=== PATIENT | male | born 1955 | race Caucasian/White ===

== ENCOUNTER 2017-06-03 16:58 | Emergency (ER) | payer MEDICAID ==
[~2017-06-03] VITALS: Ht 188 cm; Wt 130.6 kg
[~2017-06-03 16:58] MED LIST: ALBU8.5H4 IH; BISM262T13 PO; CODE-54 PO; CYCL10TA9 PO; FURO20TA4 PO; METR250T PO; NF-ROPIN4T PO; OMEP-10 PO; OXYC-471 PO; RASA1TAB PO; RIVA1TAB PO; TETR500C2 PO; TRIH2TAB2 PO; TRM50T PO
[2017-06-03] MEDS ORDERED: NS IV 500 ML 500 ML IV ONE (17:08)
[2017-06-03] MEDS ORDERED: SULF-222 (17:09)
--- NOTE | 2017-06-03 17:13 | ED Lower Extremity ---
General Chief Complaint: Lower Extremity Stated Complaint: KNEE SWOLLEN,POSS BLOOD CLOT Source: patient Exam Limitations: no limitations (MG AKBAR) History of Present Illness Date Seen by Provider: Jun 03, 2017 Time Seen by Provider: 17:02 Initial Comments Patient presents to ER by private conveyance with a chief complaint that for about a week now he's had some swelling around his left calf and knee and redness and tenderness. He went to see his primary care physician who thought he might have an infection and put him on an antibiotic. He's not had any injury to that leg does not have any drainage and he feels like despite being on the Bactrim his swelling has gotten worse. He is not having any fevers or chills, chest pain or shortness of breath. No nausea vomiting or diarrhea. He has had DVTs in the past and was on Xarelto probably over a year ago he said but is not on any blood thinners other than aspirin now. He still smokes one to one and a half packs per day. He denies any alcohol or drugs currently. He has not had any recent surgery, history of cancer or been laid up; he says is a very active gentleman. Patient does have a history of COPD and uses albuterol as needed but he has not use any recently. (MG AKBAR) Allergies and Home Medications Allergies Coded Allergies: Penicillins (Unverified Allergy, Unknown, 02/02/15) acetaminophen (Unverified Allergy, Unknown, 02/02/15) hydrocodone (Unverified Allergy, Unknown, 02/02/15) naproxen (Unverified Allergy, Unknown, 02/02/15) clarithromycin (Verified Adverse Reaction, Mild, NAUSEA, 02/07/15) doxycycline (Verified Adverse Reaction, Mild, NAUSEA, 02/07/15) Home Medications Cefdinir 300 Mg Capsule, 300 MG PO BID for 7 Days, #14 Ref 0 Prescribed by: MG AKBAR on 06/03/17 1825 Oxycodone HCl/Acetaminophen 1 Each Tablet, 1-2 EACH PO Q4H PRN for PAIN, #30 Prescribed by: CHARIS BALDWIN on 02/07/15 1053 Rasagiline Mesylate 1 Mg Tablet, 1 MG PO DAILY, (Reported) Sulfamethoxazole/Trimethoprim 1 Each Tablet, (Reported) Trihexyphenidyl HCl 2 Mg Tablet, 2 MG PO BID, (Reported) Constitutional: No chills, No diaphoresis, No fever Respiratory: No cough, No phlegm, No short of breath, wheezing Cardiovascular: No chest pain, No palpitations, No syncope Gastrointestinal: No abdominal pain, No constipation, No diarrhea, No nausea, No vomiting Genitourinary: No discharge, No dysuria (MG AKBAR) Past Crdmuqj-Lipaxp-Ajsywf Hx Patient Social History Recreational Drug Use: No Smoking Status: Current Everyday Smoker Type Used: Cigarettes (1 ppd) Recent Foreign Travel: No Contact w/Someone Who Travel: No Recent Hopitalizations: No (MG AKBAR) Immunizations Up To Date Date of Pneumonia Vaccine: Feb 07, 2011 (MG AKBAR) Seasonal Allergies Seasonal Allergies: No (MG AKBAR) Surgeries Surgeries: Eye Surgery, Orthopedic (MG AKBAR) Respiratory Respiratory Disorders: Asthma, Chronic Bronchitis, COPD (MG AKBAR) Neurological Neurological Disorders: Parkinson's Disease, Seizure Disorder (MG AKBAR) Genitourinary Genitourinary Disorders: Kidney Stones (MG AKBAR) Gastrointestinal Gastrointestinal Disorders: Gastroesophageal Reflux, Hiatal Hernia, Ulcer (MG AKBAR) Musculoskeletal Musculoskeletal Disorders: Arthritis, Chronic Back Pain (MG AKBAR) HEENT HEENT Disorders: Cataract (MG AKBAR) Psychosocial Behavioral Health Disorders: Anxiety (MG AKBAR) Blood Transfusions Adverse Reaction to a Blood Tr: No (MG AKBAR) Family Medical History Significant Family History: No Pertinent Family Hx (MG AKBAR) Physical Exam Vital Signs Vital Sign - Last 12Hours 06/03/17 17:02 Temp 98.2 Pulse 82 Resp 18 B/P (MAP) 155/93 (113) Pulse Ox 95 O2 Delivery Room Air (MARS ELIZONDO MD) Vital Signs Capillary Refill : (MG AKBAR) General Appearance: WD/WN, mild distress HEENT: PERRL/EOMI, pharynx normal Neck: non-tender, full range of motion, supple Cardiovascular: normal peripheral pulses, regular rate, rhythm, no edema Respiratory: chest non-tender, no respiratory distress, no accessory muscle use , wheezing, expiration Gastrointestinal: normal bowel sounds, non tender, soft Hips: bilateral hip non-tender, bilateral hip normal inspection, bilateral hip normal range of motion, bilateral hip no evidence of injury Legs: right leg non-tender, right leg normal inspection, bilateral leg normal range of motion, bilateral leg no evidence of injury, left leg pain, left leg soft tissue tenderness (Erythema), left leg swelling Neurologic/Tendon: normal sensation, normal motor functions, normal tendon functions, responds to pain, no evidence tendon injury Neurologic/Psychiatric: alert, normal mood/affect, oriented x 3 Skin: warm/dry, other (erythema) (MG AKBAR) Progress/Results/Core Measures Results/Orders Lab Results Laboratory Tests Test 06/03/17 17:32 06/03/17 18:25 Range/Units White Blood Count 9.3 4.3-11.0 10^3/uL Red Blood Count 4.07 L 4.35-5.85 10^6/uL Hemoglobin 12.6 L 13.3-17.7 G/DL Hematocrit 37 L 40-54 % Mean Corpuscular Volume 90 80-99 FL Mean Corpuscular Hemoglobin 31 25-34 PG Mean Corpuscular Hemoglobin Concent 34 32-36 G/DL Red Cell Distribution Width 15.3 H 10.0-14.5 % Platelet Count 283 130-400 10^3/uL Mean Platelet Volume 10.0 7.4-10.4 FL Neutrophils (%) (Auto) 52 42-75 % Lymphocytes (%) (Auto) 34 12-44 % Monocytes (%) (Auto) 8 0-12 % Eosinophils (%) (Auto) 5 0-10 % Basophils (%) (Auto) 1 0-10 % Neutrophils # (Auto) 4.9 1.8-7.8 X 10^3 Lymphocytes # (Auto) 3.2 1.0-4.0 X 10^3 Monocytes # (Auto) 0.8 0.0-1.0 X 10^3 Eosinophils # (Auto) 0.4 H 0.0-0.3 10^3/uL Basophils # (Auto) 0.1 0.0-0.1 10^3/uL Sodium Level 138 135-145 MMOL/L Potassium Level 3.7 3.6-5.0 MMOL/L Chloride Level 104 98-107 MMOL/L Carbon Dioxide Level 23 21-32 MMOL/L Anion Gap 11 5-14 MMOL/L Blood Urea Nitrogen 13 7-18 MG/DL Creatinine 1.11 0.60-1.30 MG/DL Estimat Glomerular Filtration Rate > 60 BUN/Creatinine Ratio 12 Glucose Level 98 70-105 MG/DL Calcium Level 9.4 8.5-10.1 MG/DL Total Bilirubin 0.4 0.1-1.0 MG/DL Aspartate Amino Transf (AST/SGOT) 16 5-34 U/L Alanine Aminotransferase (ALT/SGPT) 14 0-55 U/L Alkaline Phosphatase 114 40-136 U/L C-Reactive Protein High Sensitivity 0.54 H 0.00-0.50 MG/DL Total Protein 7.1 6.4-8.2 GM/DL Albumin 4.1 3.2-4.5 GM/DL D-Dimer 2.03 H 0.00-0.49 UG/ML (MARS ELIZONDO MD) Medications Given in ED Current Medications Medications Dose Ordered Sig/Nicolle Route Start Time Stop Time Status Last Admin Dose Admin Albuterol/ Ipratropium 3 ml ONCE ONCE INH 06/03/17 17:30 06/03/17 17:31 DC 06/03/17 17:58 3 ML Ceftriaxone Sodium 1000 mg/ Dextrose/Water 50 ml @ 100 mls/hr ONCE ONCE IV 06/03/17 18:30 06/03/17 18:59 DC 06/03/17 18:33 100 MLS/HR Sodium Chloride 500 ml @ 0 mls/hr Q0M ONCE IV 06/03/17 17:08 06/03/17 17:10 DC 06/03/17 17:41 500 MLS/HR (MARS ELIZONDO MD) Vital Signs/I&O Vital Sign - Last 12Hours 06/03/17 06/03/17 17:02 17:45 Temp 98.2 Pulse 82 Resp 18 B/P (MAP) 155/93 (113) Pulse Ox 95 99 O2 Delivery Room Air Room Air (MARS ELIZONDO MD) Progress Note #1: Time: 17:17 Progress Note DVT versus cellulitis. We have counseled him on his smoking and other risk factors. We'll get an ultrasound as well as some basic lab work. Progress Note #2: Time: 18:21 Progress Note Review the ultrasound and labs and infections like it under control however there redness spread the last 3 days since he was diagnosed and started on antibiotics so we'll go ahead and give him a gram of Rocephin IV while we repeat some labs that got hemolyzed and plan to increase his coverage in addition to the Bactrim with Omnicef. Discussed the case with Dr. Elizondo and while the patient will probably go home on increased antibiotics were going to repeat those labs and an Dr. Elizondo sees them and there is nothing further to act upon he will discharge the patient. (MG AKBAR) Progress Note : Progress Note 1904: I did see the patient with Dr. Akbar at checkout. Pending labs. Ultrasound negative. Labs reviewed. No significant concerns. D-dimer is elevated but I believe this is related to the cellulitis as ultrasound is negative of the leg at this point. We did discuss that this could change in the future especially given his history of previous DVT. He will follow-up with his doctor later this week or early next week for recheck. Discharged home with return precautions. Patient verbalize understanding instructions and agreement with plan. (MARS ELIZONDO MD) Diagnostic Imaging Diagonstic Imaging: Ultrasound Plain Films/CT/US/NM/MRI: leg Comments no overt DVT Reviewed: Reviewed by Me (MG AKBAR) Comments VIA [facility]. [place], [place] NAME: RYAN AUSTIN [facility] REC#: [id number] PT STATUS: REG ER : 1955 PHYSICIAN: MG AKBAR MD ADMIT DATE: 06/03/17/ER Draft Date of Exam:06/03/17 US VENOUS LOWER EXT LT PROCEDURE: US left lower extremity venous. TECHNIQUE: Multiple real-time grayscale images were obtained over the left lower extremity in various projections. Additional duplex Doppler and color Doppler images were also obtained. INDICATION: Left leg redness and swelling. COMPARISON: 05/19/2015. FINDINGS: No sonographic evidence of deep venous thrombosis is seen in the common femoral vein, superficial femoral vein and popliteal vein. These vessels demonstrate compressibility, augmentation and color flow. The calf vessels are difficult to evaluate due to edema and not well seen. IMPRESSION: No sonographic evidence of deep venous thrombosis in the left lower extremity. The calf vessels are not well seen. Dictated on workstation # [id number] Dict: 06/03/17 1817 Trans: 06/03/17 1821 [facility] [id number] Interpreted by: DAVID MCINTYRE MD Electronically signed by: (MARS ELIZONDO MD) Transfer of Care Transfer of Care Time: 18:20 Care transferred to: Lnida (MG AKBAR) Departure Impression Impression: Primary Impression: Cellulitis Qualified Codes: L03.116 - Cellulitis of left lower limb Disposition: HOME, SELF-CARE Condition: Stable Departure-Patient Inst. Decision time for Depature: 19:06 (MARS ELIZONDO MD) Referrals: RACHEAL IGLESIAS MD (PCP/Family) Primary Care Physician Patient Instructions: Cellulitis and Erysipelas (Skin Infections) Add. Discharge Instructions: Drink plenty of fluids use Tylenol or Motrin as necessary for the pain. Keep the extremity elevated when not in use. Stay mobile. If you begin to have chest pain or shortness of breath return to the ER immediately. Continue taking the Bactrim and add to that the Omnicef one capsule twice a day for the next week. While you're on these antibiotics would also be canales to take probiotics twice a day or if you are already on probiotics then double your amount until you're done with the antibiotics to try and prevent antibiotic related diarrhea. Plan to follow up with your primary care physician in the next week for reevaluation of your leg. All discharge instructions reviewed with patient and/or family. Voiced understanding. Scripts Cefdinir (Cefdinir) 300 Mg Capsule 300 MG PO BID for 7 Days, #14 CAP 0 Refills Prov: MG AKBAR 06/03/17 Copy Copies To 1: RACHEAL IGLESIAS MD, TITUS J Jun 03, 2017 17:13 MARS ELIZONDO MD Jun 03, 2017 19:06
[2017-06-03] MEDS ORDERED: RT-ALBUTEROL/IPRATROPIUM 3 ML (DUONEB) VIAL INH ONE (17:30)
[2017-06-03 17:42] LABS: BASOPHILS # (AUTO) 0.1 10^3/uL (0.0-0.1); BASOPHILS % (AUTO) 1 % (0-10); EOSINOPHILS # (AUTO) 0.4 10^3/uL (0.0-0.3); EOSINOPHILS % (AUTO) 5 % (0-10); HEMATOCRIT 37 % (40-54); HEMOGLOBIN 12.6 G/DL (13.3-17.7); LYMPHOCYTES # (AUTO) 3.2 X 10^3 (1.0-4.0); LYMPHOCYTES % (AUTO) 34 % (12-44); MEAN CORPUSCULAR HEMOGLOBIN 31 PG (25-34); MEAN CORPUSCULAR HGB CONC 34 G/DL (32-36); MEAN CORPUSCULAR VOLUME 90 FL (80-99); MONOCYTES # (AUTO) 0.8 X 10^3 (0.0-1.0); MONOCYTES % (AUTO) 8 % (0-12); NEUTROPHILS # (AUTO) 4.9 X 10^3 (1.8-7.8); NEUTROPHILS % (AUTO) 52 % (42-75); PLATELET COUNT 283 10^3/uL (130-400); RED BLOOD COUNT 4.07 10^6/uL (4.35-5.85); RED CELL DISTRIBUTION WIDTH 15.3 % (10.0-14.5); WHITE BLOOD COUNT 9.3 10^3/uL (4.3-11.0)
[2017-06-03 17:59] LABS: CALCIUM 9.4 MG/DL (8.5-10.1)
--- NOTE | 2017-06-03 18:22 | Diagnostic Imaging Report ---
PROCEDURE: US left lower extremity venous. TECHNIQUE: Multiple real-time grayscale images were obtained over the left lower extremity in various projections. Additional duplex Doppler and color Doppler images were also obtained. INDICATION: Left leg redness and swelling. COMPARISON: 05/19/2015. FINDINGS: No sonographic evidence of deep venous thrombosis is seen in the common femoral vein, superficial femoral vein and popliteal vein. These vessels demonstrate compressibility, augmentation and color flow. The calf vessels are difficult to evaluate due to edema and not well seen. IMPRESSION: No sonographic evidence of deep venous thrombosis in the left lower extremity. The calf vessels are not well seen. Dictated by: Dictated on workstation # [id number]
[2017-06-03] MEDS ORDERED: CEFD300C3 PO (18:25)
[2017-06-03] MEDS ORDERED: cefTRIAXone INJECTION 1,000 MG in D5W 50 ML IVPB SOLUTION 50 ML IV ONE (18:30)
[2017-06-03 18:54] LABS: ALANINE AMINOTRANSFERASE 14 U/L (0-55); ALBUMIN 4.1 GM/DL (3.2-4.5); ALKALINE PHOSPHATASE 114 U/L (40-136); BILIRUBIN,TOTAL 0.4 MG/DL (0.1-1.0); BUN/CREATININE RATIO 12; CARBON DIOXIDE 23 MMOL/L (21-32); CHLORIDE 104 MMOL/L (98-107); CREATININE SERUM 1.11 MG/DL (0.60-1.30); GFR ESTIMATED > 60; GLUCOSE 98 MG/DL (70-105); POTASSIUM 3.7 MMOL/L (3.6-5.0); SODIUM 138 MMOL/L (135-145); TOTAL PROTEIN 7.1 GM/DL (6.4-8.2)
[2017-06-03 19:22] VITALS: BP 149/93
--- OUTSIDE RECORDS SUMMARY | 2017-06-07 05:11 | XMS REPORT | Clinical Summary ---
Author Author [facility] Organization [facility] Address Unknown Phone Unavailable Care Team Providers Care Drill Press Operator Name Role Phone Dayne Parks MD PCP Source Comments Some departments are not documenting in the electronic medical record. If you do not see the information that you expected, contact Release of Information in the Health Information Management department at [phone] for further assistance in locating additional records.[facility] Allergies Not on File Current Medications Not on file Active Problems Not on file Social History Tobacco Use Types Packs/Day Years Used Date Never Assessed Sex Assigned at Date Recorded Not on file Last Filed Vital Signs Not on file Plan of Treatment Health Maintenance Due Date Last Done Comments HEPATITIS C SCREENING 1955 PHYSICAL (COMPREHENSIVE) 1964 EXAM PERTUSSIS VACCINE 1968 TETANUS VACCINE 1974 COLORECTAL CANCER 2007 SCREENING INFLUENZA VACCINE 12/09/2016 Results Not on filefrom Last 3 Months
--- OUTSIDE RECORDS SUMMARY | 2017-06-07 05:11 | XMS REPORT ---
Author Author ANASTASIA TORIBIO Organization [facility] Address [address] [place] [address] Care Team Providers Care Data Warehouse Manager Name Role Phone ANASTASIA TORIBIO Unavailable PROBLEMS Type Condition ICD9-CM Code [id number] Code Onset Dates Condition Status SNOMED Code Problem Low hemoglobin and low hematocrit D64.9 Active 422936116 Problem Arthritis of right elbow M19.021 Active 471533802 Problem General medical examination Z00.00 Active 176607820 Problem Pain in thoracic spine M54.6 Active 726213895177025 Problem Tremor R25.1 Active 95148003 Problem Other chronic pain G89.29 Active 78504851 Problem Low back pain M54.5 Active 142500501 ALLERGIES No Information SOCIAL HISTORY Never Assessed PLAN OF CARE VITAL SIGNS MEDICATIONS No Known Medications RESULTS No Results PROCEDURES No Known procedures IMMUNIZATIONS No Known Immunizations MEDICAL (GENERAL) HISTORY Type Description Date Medical History parkinsons disease-But states has tremor never dx officially Medical History back pain- no abnormality on radiology Medical History seizures-hasn't had seizures in years Medical History 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
--- OUTSIDE RECORDS SUMMARY | 2017-06-07 05:11 | XMS REPORT ---
Author BRYON Mccauley Organization [facility] Address [address] [place] [address] Care Team Providers Care Slab Grinder Name Role Phone NORRIS BARKLEYICE Unavailable PROBLEMS Type Condition ICD9-CM Code ASR70-QV Code Onset Dates Condition Status SNOMED Code Problem Low hemoglobin and low hematocrit D64.9 Active 972651223 Problem Arthritis of right elbow M19.021 Active 408398026 Problem General medical examination Z00.00 Active 936496991 Problem Pain in thoracic spine M54.6 Active 785815882867868 Problem Tremor R25.1 Active 10381264 Problem Other chronic pain G89.29 Active 62266702 Problem Low back pain M54.5 Active 498963408 ALLERGIES Substance Reaction Event Type Date Status Tylenol nausea Drug Allergy Jun, Active Tramadol HCl hives Drug Allergy Jun, Active Penicillin G Potassium anaphylaxis Drug Allergy Jun, Active Naproxen itching Drug Allergy Jun, Active Iodine rash Drug Allergy Jun, Active Hydrocodone-Ibuprofen hives Drug Allergy Jun, Active Aleve hives Drug Allergy Jun, Active SOCIAL HISTORY Never Assessed PLAN OF CARE Activity Details Follow Up prn Reason: VITAL SIGNS Height 74 in 2016-06-19 Weight 296.4 lbs 2016-06-19 Temperature 98.7 degrees Fahrenheit 2016-06-19 Heart Rate 88 bpm 2016-06-19 Respiratory Rate 20 2016-06-19 BMI 38.05 kg/m2 2016-06-19 Blood pressure systolic 136 mmHg 2016-06-19 Blood pressure diastolic 80 mmHg 2016-06-19 MEDICATIONS Medication Instructions Dosage Frequency Start Date End Date Duration Status Cephalexin 500 MG Orally every 12 hrs 1 capsule 12h Jun, Jun, 10 day(s) Active Percocet 10-325 MG Orally every 6 hrs 1 tablet as needed 6h Active Gabapentin 400 MG Orally Daily 1 capsule 24h Active Lasix 20 MG Orally Once a day 1 tablet 24h Active Oxygen 1 liter at night Active Morphine Sulfate ER 15 MG Orally 3 daily 1 tablet Active RESULTS No Results PROCEDURES No Known procedures [...]
--- OUTSIDE RECORDS SUMMARY | 2017-06-07 05:12 | XMS REPORT ---
Author Author ANASTASIA TORIBIO Organization [facility] Address [address] [place] [address] Care Team Providers Care Insurance Healthcare Representative Name Role Phone ANASTASIA TORIBIO Unavailable PROBLEMS Type Condition ICD9-CM Code IPB18-JQ Code Onset Dates Condition Status SNOMED Code Problem Low hemoglobin and low hematocrit D64.9 Active 649124696 Problem Arthritis of right elbow M19.021 Active 553204335 Problem General medical examination Z00.00 Active 518736300 Problem Pain in thoracic spine M54.6 Active 706273537189295 Problem Tremor R25.1 Active 89855066 Problem Other chronic pain G89.29 Active 47229186 Problem Low back pain M54.5 Active 874338060 ALLERGIES Substance Reaction Event Type Date Status Tylenol nausea Drug Allergy May, Active Tramadol HCl hives Drug Allergy May, Active Penicillin G Potassium anaphylaxis Drug Allergy May, Active Naproxen itching Drug Allergy May, Active Iodine rash Drug Allergy May, Active Hydrocodone-Ibuprofen hives Drug Allergy May, Active Aleve hives Drug Allergy May, Active SOCIAL HISTORY No smoking Hx information available PLAN OF CARE Activity Details Follow Up 2-3 weeks Reason:ameritox/pain VITAL SIGNS Height 74 in 2016-05-15 Weight 294.2 lbs 2016-05-15 Temperature 98.0 degrees Fahrenheit 2016-05-15 Heart Rate 72 bpm 2016-05-15 Respiratory Rate 20 2016-05-15 BMI 37.77 kg/m2 2016-05-15 Blood pressure systolic 132 mmHg 2016-05-15 Blood pressure diastolic 86 mmHg 2016-05-15 MEDICATIONS Medication Instructions Dosage Frequency Start Date End Date Duration Status Lasix 20 MG Orally Once a day 1 tablet 24h Active Oxygen 1 liter at night Active Morphine Sulfate ER 15 MG Orally 3 daily 1 tablet Active Percocet 10-325 MG Orally every 6 hrs 1 tablet as needed 6h Active Gabapentin 400 MG Orally Daily 1 capsule 24h Active RESULTS Name Result Date Reference Range TSH 2016-05-15 TSH 2.020 0.450-4.500 CBC 2016-05-15 WBC 9.0 3.4-10.8 RBC 3.99 4.14-5.80 Hemoglobin 12.1 12.6-17.7 Hematocrit 36.8 37.5-51.0 MCV 92 79-97 MCH 30.3 26.6-33.0 MCHC 32.9 31.5-35.7 RDW 14.2 12.3-15.4 Platelets 296 150-379 Neutrophils 44 Lymphs 44 Monocytes 8 Eos 3 Basos 1 Immature Cells Neutrophils (Absolute) 3.9 1.4-7.0 Lymphs (Absolute) 4.0 0.7-3.1 Monocytes(Absolute) 0.7 0.1-0.9 Eos (Absolute) 0.3 0.0-0.4 Baso (Absolute) 0.1 0.0-0.2 Immature Granulocytes 0 Immature Grans (Abs) 0.0 0.0-0.1 NRBC Hematology Comments: CMP 2016-05-15 Glucose, Serum 92 65-99 BUN 14 6-24 Creatinine, Serum 0.76 0.76-1.27 eGFR If NonAfricn Am 101 >59 eGFR If Africn Am 116 >59 BUN/Creatinine Ratio 18 9-20 Sodium, Serum 142 134-144 Potassium, Serum 4.1 3.5-5.2 Chloride, Serum 104 96-106 Carbon Dioxide, Total 23 18-29 Calcium, Serum 8.9 8.7-10.2 Protein, Total, Serum 6.2 6.0-8.5 Albumin, Serum 4.0 3.5-5.5 Globulin, Total 2.2 1.5-4.5 A/G Ratio 1.8 1.1-2.5 Bilirubin, Total 0.2 0.0-1.2 Alkaline Phosphatase, S 103 39-117 AST (SGOT) 19 0-40 ALT (SGPT) 22 0-44 AMERITOX 2016-05-15 PROCEDURES Procedure Date Ordered Related Diagnosis Body Site LAB NOT BILLED BY [employer] May 15, 2016 No Charge May 15, 2016 Office Visit, Est Pt., Level 5 May 15, 2016 IMMUNIZATIONS No Known Immunizations
--- OUTSIDE RECORDS SUMMARY | 2017-06-07 05:12 | XMS REPORT ---
Author Author ADELITA SHAIKH [facility] Address [address] [place] [address] Care Team Providers Care Regulatory Compliance Manager Name Role Phone ADELITA SHAIKH Unavailable PROBLEMS Type Condition ICD9-CM Code ZEA51-CS Code Onset Dates Condition Status SNOMED Code Problem Low hemoglobin and low hematocrit D64.9 Active 334952956 Problem Arthritis of right elbow M19.021 Active 528544116 Problem General medical examination Z00.00 Active 569571684 Problem Pain in thoracic spine M54.6 Active 520121605251667 Problem Tremor R25.1 Active 08862347 Problem Other chronic pain G89.29 Active 74607735 Problem Low back pain M54.5 Active 972459489 ALLERGIES No Information SOCIAL HISTORY Never Assessed [...]
--- OUTSIDE RECORDS SUMMARY | 2017-06-07 05:12 | XMS REPORT ---
Author Author RISA REID [facility] Address [address] [place] [address] Care Team Providers Care Shaker Tender Name Role Phone RISA REID Unavailable PROBLEMS Type Condition ICD9-CM Code [id number] Code Onset Dates Condition Status SNOMED Code Problem Low hemoglobin and low hematocrit D64.9 Active 513705024 Problem Arthritis of right elbow M19.021 Active 933315045 Problem General medical examination Z00.00 Active 527087098 Problem Pain in thoracic spine M54.6 Active 451142547710028 Problem Tremor R25.1 Active 41523810 Problem Other chronic pain G89.29 Active 54368744 Problem Low back pain M54.5 Active 192313496 ALLERGIES Substance Reaction Event Type Date Status [...] prn Reason: VITAL SIGNS Height 74 in 2016-07-04 Weight 297.0 lbs 2016-07-04 Temperature 98.1 degrees Fahrenheit 2016-07-04 Heart Rate 80 bpm 2016-07-04 Respiratory Rate 22 2016-07-04 BMI 38.13 kg/m2 2016-07-04 Blood pressure systolic 123 mmHg 2016-07-04 Blood pressure diastolic 81 mmHg 2016-07-04 MEDICATIONS Medication Instructions Dosage Frequency Start Date End Date Duration Status Lasix 20 MG Orally Once a day 1 tablet 24h Active Oxygen 1 liter at night Active Gabapentin 400 MG Orally Daily 1 capsule 24h Active Morphine Sulfate ER 15 MG Orally 3 daily 1 tablet Active Tennis Elbow Strap - as directed Apr, 10 days Active Percocet 10-325 MG Orally every 6 hrs 1 tablet as needed 6h Active RESULTS No Results PROCEDURES No Known [...]
--- OUTSIDE RECORDS SUMMARY | 2017-06-07 05:12 | XMS REPORT ---
Author Author CLARISSE PICHARDO Organization [facility] Address [address] [place] [address] Care Team Providers Care Director Facilities Maintenance Name Role Phone CLARISSE PICHARDO Unavailable PROBLEMS Type Condition ICD9-CM Code [id number] Code Onset Dates Condition Status SNOMED Code Problem Low hemoglobin and low hematocrit D64.9 Active 829062559 Problem Arthritis of right elbow M19.021 Active 301123022 Problem Other chronic pain G89.29 Active 51428278 Problem Low back pain M54.5 Active 537752514 Problem General medical examination Z00.00 Active 063414538 Problem Tremor R25.1 Active 66383282 Problem Pain in thoracic spine M54.6 Active [id number] ALLERGIES Substance Reaction Event Type Date Status Tylenol nausea Drug Allergy Apr, Active Tramadol HCl hives Drug Allergy Apr, Active Penicillin G Potassium anaphylaxis Drug Allergy Apr, Active Naproxen itching Drug Allergy Apr, Active Iodine rash Drug Allergy Apr, Active Hydrocodone-Ibuprofen hives Drug Allergy Apr, Active Aleve hives Drug Allergy Apr, Active SOCIAL HISTORY No smoking Hx information available PLAN OF CARE Activity Details Follow Up prn Reason: VITAL SIGNS Height 74 in 2016-04-24 Weight 278 lbs 2016-04-24 Temperature 98.1 degrees Fahrenheit 2016-04-24 Heart Rate 96 bpm 2016-04-24 Respiratory Rate 20 2016-04-24 BMI 35.69 kg/m2 2016-04-24 Blood pressure systolic 110 mmHg 2016-04-24 Blood pressure diastolic 80 mmHg 2016-04-24 MEDICATIONS Medication Instructions Dosage Frequency Start Date End Date Duration Status Gabapentin 400 MG Orally Daily 1 capsule 24h Active Lasix 20 MG Orally Once a day 1 tablet 24h Active PredniSONE 20 mg Orally Once a day 1 tablet 24h Apr, Apr, 05 days Active Tennis Elbow Strap - as directed Apr, 10 days Active Percocet 10-325 MG Orally every 6 hrs 1 tablet as needed 6h Active Morphine Sulfate ER 15 MG Orally 3 daily 1 tablet Active Oxygen Active RESULTS Name Result Date Reference Range Xray : Elbow, Right 3 views (IN HOUSE) 2016-04-24 PROCEDURES Procedure Date Ordered Related Diagnosis Body Site X-RAY EXAM OF ELBOW Apr 24, 2016 Office Visit, New Pt., Level 2 Apr 24, 2016 IMMUNIZATIONS No Known Immunizations
--- OUTSIDE RECORDS SUMMARY | 2017-06-07 05:12 | XMS REPORT | Continuity of Care Document ---
Author Author [facility] Organization [facility] Address Unknown Phone Unavailable Allergies Active Description Code Type Severity Reaction Onset Reported/Identified Relationship to Patient Clinical Status Yes acetaminophen [id number] Drug Allergy Unknown N/A 02/02/2015 Yes clarithromycin [id number] Drug Allergy Unknown NAUSEA 02/02/2015 Yes doxycycline [id number] Drug Allergy Unknown NAUSEA 02/02/2015 Yes hydrocodone [id number] Drug Allergy Unknown N/A 02/02/2015 Yes naproxen [id number] Drug Allergy Unknown N/A 02/02/2015 Yes Penicillins [id number] Drug Allergy Unknown N/A 02/02/2015 Yes clarithromycin [id number] Drug Allergy Mild NAUSEA 02/07/2015 Yes doxycycline [id number] Drug Allergy Mild NAUSEA 02/07/2015 Medications There is no data. Problems Date Dx Coded Attending Type Code Diagnosis Diagnosed By 07/16/2010 Ot 729.5 11/19/2010 Ot 491.21 11/19/2010 Ot 786.05 01/14/2015 MIKHAIL ARIAS, MARS Garcia Ot 593.9 RENAL URETERAL DIS NOS 01/14/2015 MARS ELIZONDO MD Ot 719.46 JOINT PAIN-L/LEG 02/07/2015 SABINA ARIAS, ROB Haider Ot 332.0 PARALYSIS AGITANS 02/07/2015 SABINA ARIAS, ROB Haider Ot 496 CHR AIRWAY OBSTRUCT NEC 02/07/2015 SABINA ARIAS, ROB Haider Ot 717.7 CHONDROMALACIA PATELLAE 02/07/2015 SABINA ARIAS, ROB Haider Ot 733.92 CHONDROMALACIA 02/07/2015 SABINA ARIAS, ROB Haider Ot V57.1 PHYSICAL THERAPY NEC 05/19/2015 SABINA ARIAS, ROB Haider Ot 717.3 05/19/2015 SABINA ARIAS, ROB Haider Ot V72.83 05/19/2015 SABINA ARIAS, ROB Haider Ot V74.8 05/20/2015 MARICEL LOCKWOOD DO Ot F17.210 NICOTINE DEPENDENCE, CIGARETTES, UNCOMPL 05/20/2015 MARICEL LOCKWOOD DO Ot I82.4Z2 AC EMBLSM AND THOMBOS UNSP DEEP VEINS OF 02/17/2016 MERCY BUSHP Ot F17.210 NICOTINE DEPENDENCE, CIGARETTES, UNCOMPL 02/17/2016 RACHELLE, [facility] MANAGER MEDICAL DEVICE Ot G89.29 OTHER CHRONIC PAIN 02/17/2016 RACHELLE, [facility] MANAGER [employer]ICAL DEVICE Ot J44.9 CHRONIC OBSTRUCTIVE PULMONARY DISEASE, U 02/17/2016 RACHELLE, [facility] MANAGER MEDICAL DEVICE Ot M54.2 CERVICALGIA 02/17/2016 RACHELLE, [facility] MANAGER MEDICAL DEVICE Ot R51 HEADACHE 02/17/2016 RACHELLE, [facility] MANAGER MEDICAL DEVICE Ot Z79.899 OTHER STUDENT OUTREACH COORDINATOR (CURRENT) DRUG THERAPY 02/23/2016 RACHELLE, [facility] MANAGER MEDICAL DEVICE Ot F17.210 NICOTINE DEPENDENCE, CIGARETTES, UNCOMPL 02/23/2016 RACHELLE, [facility] MANAGER MEDICAL DEVICE Ot G89.29 OTHER CHRONIC PAIN 02/23/2016 RACHELLE, [facility] MANAGER MEDICAL DEVICE Ot J44.9 CHRONIC OBSTRUCTIVE PULMONARY DISEASE, U 02/23/2016 RACHELLE, [employer] MANAGER MEDICAL DEVICE Ot M54.2 CERVICALGIA 02/23/2016 RACHELLE, [facility] MANAGER MEDICAL DEVICE Ot R51 HEADACHE 02/23/2016 RACHELLE, [facility] MANAGER MEDICAL DEVICE Ot Z79.899 OTHER STUDENT OUTREACH COORDINATOR (CURRENT) DRUG THERAPY 06/03/2017 SABINA ARIAS, ROB Haider Ot 717.3 DERANG MED MENISCUS NEC 06/03/2017 ROB MUHAMMAD MD Ot V72.83 EXAM PRE-OPERATIVE NEC 06/03/2017 ROB MUHAMMAD MD, Ot V74.8 SCREEN-BACTERIAL DIS NEC Procedures There is no data. Results Test Result Range Complete urinalysis with reflex to culture - 02/17/16 21:30 Urine color determination YELLOW NRG Urine clarity determination CLEAR NRG Urine pH measurement by test strip 7 5-9 Specific gravity of urine by test strip 1.010 1.016- 1.022 Urine protein assay by test strip, semi-quantitative NEGATIVE NEGATIVE Urine glucose detection by automated test strip NEGATIVE NEGATIVE Erythrocytes detection in urine sediment by light microscopy NEGATIVE NEGATIVE Urine ketones detection by automated test strip NEGATIVE NEGATIVE Urine nitrite detection by test strip NEGATIVE NEGATIVE Urine total bilirubin detection by test strip NEGATIVE NEGATIVE Urine urobilinogen measurement by automated test strip (mass/volume) NORMAL NORMAL Urine leukocyte esterase detection by dipstick NEGATIVE NEGATIVE Automated urine sediment erythrocyte count by microscopy (number/high power field) NONE NRG Automated urine sediment leukocyte count by microscopy (number/high power field ) RARE NRG Bacteria detection in urine sediment by light microscopy NEGATIVE NRG Squamous epithelial cells detection in urine sediment by light microscopy 2-5 NRG Crystals detection in urine sediment by light microscopy NONE NRG Casts detection in urine sediment by light microscopy NONE NRG Mucus detection in urine sediment by light microscopy NEGATIVE NRG Complete urinalysis with reflex to culture NO NRG Renal epithelial cells detection in urine sediment by light microscopy NONE NRG Complete blood count (CBC) with automated white blood cell (WBC) differential - 02/17/16 21:40 Blood leukocytes automated count (number/volume) 9.7 10*3/uL 4.3-11.0 Blood erythrocytes automated count (number/volume) 4.31 10*6/uL 4.35-5.85 Venous blood hemoglobin measurement (mass/volume) 13.6 g/dL 13.3-17.7 Blood hematocrit (volume fraction) 41 % 40-54 Automated erythrocyte mean corpuscular volume 96 [foz_us] 80-99 Automated erythrocyte mean corpuscular hemoglobin (mass per erythrocyte) 32 pg 25-34 Automated erythrocyte mean corpuscular hemoglobin concentration measurement ( mass/volume) 33 g/dL 32-36 Automated erythrocyte distribution width ratio 15.8 % 10.0-14.5 Automated blood platelet count (count/volume) 278 10*3/uL 130-400 Automated blood platelet mean volume measurement 9.4 [foz_us] 7.4-10.4 Automated blood neutrophils/100 leukocytes 44 % 42-75 Automated blood lymphocytes/100 leukocytes 41 % 12-44 Blood monocytes/100 leukocytes 10 % 0-12 Automated blood eosinophils/100 leukocytes 3 % 0-10 Automated blood basophils/100 leukocytes 1 % 0-10 Blood neutrophils automated count (number/volume) 4.3 10*3 1.8-7.8 Blood lymphocytes automated count (number/volume) 4.0 10*3 1.0-4.0 Blood monocytes automated count (number/volume) 1.0 10*3 0.0-1.0 Automated eosinophil count 0.3 10*3/uL 0.0-0.3 Automated blood basophil count (count/volume) 0.1 10*3/uL 0.0-0.1 Comprehensive metabolic panel - 02/17/16 21:40 Serum or plasma sodium measurement (moles/volume) 142 mmol/L 135-145 Serum or plasma potassium measurement (moles/volume) 4.0 mmol/L 3.6-5.0 Serum or plasma chloride measurement (moles/volume) 106 mmol/L 98-107 Carbon dioxide 21 mmol/L 21-32 Serum or plasma anion gap determination (moles/volume) 15 mmol/L 5-14 Serum or plasma urea nitrogen measurement (mass/volume) 11 mg/dL 7-18 Serum or plasma creatinine measurement (mass/volume) 0.89 mg/dL 0.60-1.30 Serum or plasma urea nitrogen/creatinine mass ratio 12 NRG Serum or plasma creatinine measurement with calculation of estimated glomerular filtration rate > NRG Serum or plasma glucose measurement (mass/volume) 102 mg/dL 70-105 Serum or plasma calcium measurement (mass/volume) 9.9 mg/dL 8.5-10.1 Serum or plasma total bilirubin measurement (mass/volume) 0.2 mg/dL 0.1-1.0 Serum or plasma alkaline phosphatase measurement (enzymatic activity/volume) 109 U/L 40-136 Serum or plasma aspartate aminotransferase measurement (enzymatic activity/ volume) 16 U/L 5-34 Serum or plasma alanine aminotransferase measurement (enzymatic activity/volume ) 16 U/L 0-55 Serum or plasma protein measurement (mass/volume) 7.0 g/dL 6.4-8.2 Serum or plasma albumin measurement (mass/volume) 4.3 g/dL 3.2-4.5 Complete blood count (CBC) with automated white blood cell (WBC) differential - 06/03/17 17:32 Blood leukocytes automated count (number/volume) 9.3 10*3/uL 4.3-11.0 Blood erythrocytes automated count (number/volume) 4.07 10*6/uL 4.35-5.85 Venous blood hemoglobin measurement (mass/volume) 12.6 g/dL 13.3-17.7 Blood hematocrit (volume fraction) 37 % 40-54 Automated erythrocyte mean corpuscular volume 90 [foz_us] 80-99 Automated erythrocyte mean corpuscular hemoglobin (mass per erythrocyte) 31 pg 25-34 Automated erythrocyte mean corpuscular hemoglobin concentration measurement ( mass/volume) 34 g/dL 32-36 Automated erythrocyte distribution width ratio 15.3 % 10.0-14.5 Automated blood platelet count (count/volume) 283 10*3/uL 130-400 Automated blood platelet mean volume measurement 10.0 [foz_us] 7.4-10.4 Automated blood neutrophils/100 leukocytes 52 % 42-75 Automated blood lymphocytes/100 leukocytes 34 % 12-44 Blood monocytes/100 leukocytes 8 % 0-12 Automated blood eosinophils/100 leukocytes 5 % 0-10 Automated blood basophils/100 leukocytes 1 % 0-10 Blood neutrophils automated count (number/volume) 4.9 10*3 1.8-7.8 Blood lymphocytes automated count (number/volume) 3.2 10*3 1.0-4.0 Blood monocytes automated count (number/volume) 0.8 10*3 0.0-1.0 Automated eosinophil count 0.4 10*3/uL 0.0-0.3 Automated blood basophil count (count/volume) 0.1 10*3/uL 0.0-0.1 Comprehensive metabolic panel - 06/03/17 17:32 Serum or plasma sodium measurement (moles/volume) 138 mmol/L 135-145 Serum or plasma potassium measurement (moles/volume) 3.7 mmol/L 3.6-5.0 Serum or plasma chloride measurement (moles/volume) 104 mmol/L 98-107 Carbon dioxide 23 mmol/L 21-32 Serum or plasma anion gap determination (moles/volume) 11 mmol/L 5-14 Serum or plasma urea nitrogen measurement (mass/volume) 13 mg/dL 7-18 Serum or plasma creatinine measurement (mass/volume) 1.11 mg/dL 0.60-1.30 Serum or plasma urea nitrogen/creatinine mass ratio 12 NRG Serum or plasma creatinine measurement with calculation of estimated glomerular filtration rate > NRG Serum or plasma glucose measurement (mass/volume) 98 mg/dL 70-105 Serum or plasma calcium measurement (mass/volume) 9.4 mg/dL 8.5-10.1 Serum or plasma total bilirubin measurement (mass/volume) 0.4 mg/dL 0.1-1.0 Serum or plasma alkaline phosphatase measurement (enzymatic activity/volume) 114 U/L 40-136 Serum or plasma aspartate aminotransferase measurement (enzymatic activity/ volume) 16 U/L 5-34 Serum or plasma alanine aminotransferase measurement (enzymatic activity/volume ) 14 U/L 0-55 Serum or plasma protein measurement (mass/volume) 7.1 g/dL 6.4-8.2 Serum or plasma albumin measurement (mass/volume) 4.1 g/dL 3.2-4.5 Serum or plasma C reactive protein measurement (mass/volume) - 06/03/17 17:32 Serum or plasma C reactive protein measurement (mass/volume) 0.54 mg /dL 0.00-0.50 Fibrin D-dimer FEU measurement in platelet poor plasma (mass/volume) - 18:25 Fibrin D-dimer FEU measurement in platelet poor plasma (mass/volume) 2.03 ug/mL 0.00-0.49 Encounters ACCT No. Visit Date/Time Discharge Status Pt. Type Provider Facility Loc./Unit Complaint [id number] 06/03/2017 17:00:00 06/03/2017 19:22:00 DIS Emergency MARS ELIZONDO MD [facility] ER KNEE SWOLLEN,POSS BLOOD CLOT [id number] 02/17/2016 18:54:00 02/17/2016 23:15:00 DIS Emergency MERCY BUSH [facility] ER HEADACHE, HOT FLASHES, NECK SWELLING/PAIN [id number] 05/19/2015 21:03:00 05/20/2015 00:22:00 DIS Emergency MARICEL LOCKWOOD DO [facility] ER KNEE PAIN/SWELLING [id number] 02/07/2015 07:42:00 02/07/2015 11:45:00 DIS Outpatient ROB MUHAMMAD MD [facility] SDC LEFT KNEE TORN MENISCUS [id number] 02/02/2015 09:03:00 02/02/2015 23:59:59 CLS Outpatient ROB MUHAMMAD MD [facility] PREOP LEFT KNEE TORN MENISCUS [id number] 01/14/2015 21:14:00 01/14/2015 23:43:00 DIS Emergency MARS ELIZONDO MD [facility] ER LEFT KNEE PAIN [id number] 01/14/2015 21:14:00 Document Registration [id number] 11/19/2010 18:41:00 Document Registration
--- OUTSIDE RECORDS SUMMARY | 2017-06-07 05:12 | XMS REPORT ---
Author Author FABIOLA MYLES [facility] Address [address] [place] [address] Care Team Providers Care Single Stayer Operator Name Role Phone FABIOLA MYLES Unavailable PROBLEMS Unknown Problems ALLERGIES Substance Reaction Event Type Date Status Tylenol nausea Drug Allergy Mar, Active Penicillin G Potassium anaphylaxis Drug Allergy Mar, Active Naproxen itching Drug Allergy Mar, Active Iodine Unknown Drug Allergy Mar, Active Aleve hives Drug Allergy Mar, Active SOCIAL HISTORY No smoking Hx information available PLAN OF CARE VITAL SIGNS MEDICATIONS Medication Instructions Dosage Frequency Start Date End Date Duration Status Morphine Sulfate ER 15 MG Orally 3 daily 1 tablet Active Flexeril 30 mg po Daily 24h Active Gabapentin 400 MG Orally Daily 1 capsule 24h Active Lasix 20 MG Orally Once a day 1 tablet 24h Active Oxygen Active RESULTS No Results PROCEDURES No Known procedures IMMUNIZATIONS No Known Immunizations
--- OUTSIDE RECORDS SUMMARY | 2017-06-07 05:12 | XMS REPORT ---
Author Author FABIOLA MYLES [facility] Address [address] [place] [address] Care Team Providers Care Molding Line Operator Name Role Phone FABIOLA MYLES Unavailable [...] MG Orally 3 daily 1 tablet Active Gabapentin 400 MG Orally Daily 1 capsule 24h Active Lasix 20 MG Orally Once a day 1 tablet 24h Active Oxygen Active Flexeril 30 mg po Daily 24h Active RESULTS No Results PROCEDURES No Known procedures IMMUNIZATIONS No Known Immunizations
--- OUTSIDE RECORDS SUMMARY | 2017-06-07 05:12 | XMS REPORT ---
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
== END 2017-06-03 19:22 | disposition home or self-care (01) ==
LOC: EDUNIT# 16:58 → ER 17:00
DX: L03.116 Cellulitis of left lower limb (principal); J44.9 Chronic obstructive pulmonary disease, unspecified; G40.909 Epilepsy, unspecified, not intractable, without status epilepticus; G20 Parkinson's disease; K21.9 Gastro-esophageal reflux disease without esophagitis; F41.9 Anxiety disorder, unspecified; F17.210 Nicotine dependence, cigarettes, uncomplicated; Z87.442 Personal history of urinary calculi; Z87.19 Personal history of other diseases of the digestive system
CPT/HCPCS: 36415; 80053; 85025; 85379; 86141; 94640; 96361; 96365

== ENCOUNTER 2017-06-11 14:18 | Emergency (ER) | payer MEDICAID ==
[~2017-06-11] VITALS: Ht 190.5 cm; Wt 145.1 kg
[~2017-06-11 14:18] MED LIST changes: +CEFD300C3 PO; +SULF-222
--- OUTSIDE RECORDS SUMMARY | 2017-06-11 14:24 | XMS REPORT | Clinical Summary ---
Author Author [facility] Organization [facility] Address Unknown Phone Unavailable Care Team Providers Care Inventory Taker Name Role Phone Dayne Parks MD PCP Source Comments Some departments are not documenting in the electronic medical record. If you do not see the information that you expected, contact Release of Information in the Health Information Management department at [phone] for further assistance in locating additional records.[facility] Allergies Not on File Current Medications [...]
--- OUTSIDE RECORDS SUMMARY | 2017-06-11 14:26 | XMS REPORT | Continuity of Care Document ---
Author Author [facility] Organization [facility] Address Unknown Phone Unavailable Allergies Active Description Code Type Severity Reaction Onset Reported/Identified Relationship to Patient Clinical Status Yes acetaminophen [id number] Drug Allergy Unknown N/A 02/02/2015 Yes clarithromycin [id number] Drug Allergy Unknown NAUSEA 02/02/2015 Yes doxycycline [id number] Drug Allergy Unknown NAUSEA 02/02/2015 Yes hydrocodone [id number] Drug Allergy Unknown N/A 02/02/2015 Yes naproxen [id number] Drug Allergy Unknown N/A 02/02/2015 Yes Penicillins [id number] Drug Allergy Unknown N/A 02/02/2015 Yes clarithromycin [id number] Drug Allergy Mild NAUSEA 02/07/2015 Yes doxycycline [id number] Drug Allergy Mild NAUSEA 02/07/2015 Medications There is no data. Problems Date Dx Coded Attending Type Code Diagnosis Diagnosed By 07/16/2010 Ot 729.5 11/19/2010 Ot 491.21 11/19/2010 Ot 786.05 01/14/2015 MIKHAIL ARIAS, MARS Garcia Ot 593.9 RENAL URETERAL DIS NOS 01/14/2015 MIKHAIL ARIAS, MARS Garcia Ot 719.46 JOINT PAIN-L/LEG 02/07/2015 SABINA ARIAS, [...] NICOTINE DEPENDENCE, CIGARETTES, UNCOMPL 02/17/2016 RACHELLE, [facility] MONKEY KEEPER Ot G89.29 OTHER CHRONIC PAIN 02/17/2016 RACHELLE, [facility] MONKEY KEEPER Ot J44.9 CHRONIC OBSTRUCTIVE PULMONARY DISEASE, U 02/17/2016 RACHELLE, [facility] MONKEY KEEPER Ot M54.2 CERVICALGIA 02/17/2016 RACHELLE, [facility] MONKEY KEEPER Ot R51 HEADACHE 02/17/2016 RACHELLE, [facility] MONKEY KEEPER Ot Z79.899 OTHER SIMPLEX OPERATOR (CURRENT) DRUG THERAPY 02/23/2016 RACHELLE, [facility] MONKEY KEEPER Ot F17.210 NICOTINE DEPENDENCE, CIGARETTES, UNCOMPL 02/23/2016 RACHELLE, [facility] MONKEY KEEPER Ot G89.29 OTHER CHRONIC PAIN 02/23/2016 RACHELLE, [facility] MONKEY KEEPER Ot J44.9 CHRONIC OBSTRUCTIVE PULMONARY DISEASE, U 02/23/2016 RACHELLE, [facility] MONKEY KEEPER Ot M54.2 CERVICALGIA 02/23/2016 RACHELLE, [facility] MONKEY KEEPER Ot R51 HEADACHE 02/23/2016 RACHELLE, MER[facility] MONKEY KEEPER Ot Z79.899 OTHER SIMPLEX OPERATOR (CURRENT) DRUG THERAPY 06/03/2017 SABINA ARIAS, ROB [...] Status Pt. Type Provider Facility Loc./Unit Complaint [id number] 06/03/2017 17:00:00 06/03/2017 19:22:00 DIS Emergency MARS ELIZONDO MD [facility] ER KNEE SWOLLEN,POSS BLOOD CLOT [id number] 02/17/2016 18:54:00 02/17/2016 23:15:00 DIS Emergency MERCY BUSH [facility] ER HEADACHE, HOT FLASHES, NECK SWELLING/PAIN [id number] 05/19/2015 21:03:00 05/20/2015 00:22:00 DIS Emergency MARICEL LOCKWOOD DO [facility] ER KNEE PAIN/SWELLING [id number] 02/07/2015 07:42:00 02/07/2015 11:45:00 DIS Outpatient ROB MUHAMMAD MD [facility] SDC LEFT KNEE TORN MENISCUS [id number] 02/02/2015 09:03:00 02/02/2015 23:59:59 CLS Outpatient ROB MUHAMMAD MD [facility] PREOP LEFT KNEE TORN MENISCUS [id number] 01/14/2015 21:14:00 01/14/2015 23:43:00 DIS Emergency MARS ELIZONDO MD [facility] ER LEFT KNEE PAIN [id number] 01/14/2015 21:14:00 Document Registration [id number] 11/19/2010 18:41:00 Document Registration
[2017-06-11] MEDS ORDERED: MORP-33 (14:39)
[2017-06-11] MEDS ORDERED: FURO40TA4 (14:39)
[2017-06-11] MEDS ORDERED: BACL10TA PO (14:40)
--- NOTE | 2017-06-11 14:56 | ED General ---
General Chief Complaint: Lower Extremity Stated Complaint: LEFT THIGH PAIN/SWELLING Nursing Triage Note: PT AMBULATES LIMPING TO ROOM 10 PT CO OF L UPPER THIGH SWELLING AND PAIN FOR APPROX 1-2 WEEKS, PT STATES FINISHED ANTIBIOTIC PAST COUPLE DAYS. PT HAS CHRONIC ISSUES W L UPPER AND LOWER LEG. Nursing Sepsis Screen: No Definite Risk Source of Information: Patient, Family, Old Records Exam Limitations: No Limitations History of Present Illness Date Seen by Provider: Jun 11, 2017 Time Seen by Provider: 14:35 Initial Comments This patient presents to the emergency room with persistent left lower extremity pain, swelling, and erythema for 3 weeks. He has been seen in Dr. Iglesias's office as well as in the emergency room. He has been treated with antibiotics for suspected cellulitis without notable improvement. On his visit to the emergency room he had an ultrasound of the left lower extremity performed. No venous thrombosis was seen but the calf veins were not well visualized. He denies any fever. He has a history of prior DVTs but is not presently on any anticoagulation. Allergies and Home Medications Allergies Coded Allergies: Penicillins (Unverified Allergy, Unknown, 02/02/15) acetaminophen (Unverified Allergy, Unknown, 02/02/15) hydrocodone (Unverified Allergy, Unknown, 02/02/15) naproxen (Unverified Allergy, Unknown, 02/02/15) clarithromycin (Verified Adverse Reaction, Mild, NAUSEA, 02/07/15) doxycycline (Verified Adverse Reaction, Mild, NAUSEA, 02/07/15) Home Medications Baclofen 10 Mg Tablet, Unknown Dose PO, (Reported) Furosemide 40 Mg Tablet, (Reported) Morphine Sulfate 15 Mg Tablet.er, (Reported) Oxycodone HCl/Acetaminophen 1 Each Tablet, 1-2 EACH PO Q4H PRN for PAIN, #30 Prescribed by: CHARIS BALDWIN on 02/07/15 1053 Rivaroxaban 1 Each Tab.ds.pk, 1 EACH PO UD, #51 15mg by mouth twice daily x 21 days then 20mg by mouth daily Prescribed by: VIGNESH PADILLA on 06/11/17 1638 Constitutional: no symptoms reported EENTM: no symptoms reported Respiratory: no symptoms reported Cardiovascular: see HPI Gastrointestinal: no symptoms reported Genitourinary: no symptoms reported Musculoskeletal: no symptoms reported Skin: see HPI Psychiatric/Neurological: No Symptoms Reported Hematologic/Lymphatic: No Symptoms Reported Past Cufampq-Wqufoz-Jkyjuu Hx Patient Social History Alcohol Use: Denies Use Recreational Drug Use: No Smoking Status: Current Everyday Smoker Type Used: Cigarettes Recent Foreign Travel: No Contact w/Someone Who Travel: No Recent Infectious Disease Expo: No Recent Hopitalizations: No Physical Abuse: No Sexual Abuse: No Immunizations Up To Date Date of Pneumonia Vaccine: Feb 07, 2011 Seasonal Allergies Seasonal Allergies: No Surgeries History of Surgeries: Yes (LEFT KNEE SCOPE X 5, CYST REMOVED FROM RIGHT BREAST , BILAT CATARACTS) Surgeries: Eye Surgery, Orthopedic Respiratory History of Respiratory Disorde: Yes Respiratory Disorders: Asthma, Chronic Bronchitis, COPD Cardiovascular History of Cardiac Disorders: Yes Cardiac Disorders: Deep Vein Thrombosis Neurological History of Neurological Disord: Yes (PT STATES "I CAN CONTROL THEM MYSELF") Neurological Disorders: Parkinson's Disease, Seizure Disorder Genitourinary History of Genitourinary Disor: Yes Genitourinary Disorders: Kidney Stones Gastrointestinal History of Gastrointestinal Di: Yes Gastrointestinal Disorders: Gastroesophageal Reflux, Hiatal Hernia, Ulcer Musculoskeletal History of Musculoskeletal Dis: Yes (CHRONIC L KNEE &LEG PAIN/SWELLING; ) Musculoskeletal Disorders: Arthritis, Chronic Back Pain (scoliosis) Endocrine History of Endocrine Disorders: No HEENT History of HEENT Disorders: Yes HEENT Disorders: Cataract Cancer History of Cancer: No Psychosocial History of Psychiatric Problem: Yes Behavioral Health Disorders: Anxiety Suicide Risk Score: 0 Integumentary History of Skin or Integumenta: Yes (SKIN ULCERS-LEGS) Blood Transfusions History of Blood Disorders: No Adverse Reaction to a Blood Tr: No Family Medical History Significant Family History: No Pertinent Family Hx Physical Exam Vital Signs Vital Sign - Last 12Hours 06/11/17 14:25 Temp 95.3 Pulse 98 Resp 18 B/P (MAP) 128/86 (100) Pulse Ox 97 Capillary Refill : Less Than 3 Seconds General Appearance: No Apparent Distress, WD/WN HEENT: PERRL/EOMI, Normal ENT Inspection Neck: Normal Inspection Respiratory: Lungs Clear, Normal Breath Sounds, No Accessory Muscle Use, No Respiratory Distress Cardiovascular: Regular Rate, Rhythm, No Edema, No Murmur, Normal Peripheral Pulses (normal pedal pulse in the left foot) Extremity: Swelling, Other (there is blanching erythema of the lower leg and the medial left thigh. There is subtle edema of the left lower extremity when compared to the right. Erythematous areas are tender to touch. Pedal pulses palpable.) Neurologic/Psychiatric: Alert, Oriented x3, No Motor/Sensory Deficits, Normal Mood/Affect, ad operations specialist II-XII Norm as Tested Skin: Normal Color, Warm/Dry Progress/Results/Core Measures Suspected Sepsis Recent Fever Within 48 Hours: No Infection Criteria Present: None New/Unexplained Altered Menta: No Sepsis Screen: No Definite Risk Sepsis Diagnosis: SIRS Temperature:95.3 Pulse: 98 Respiratory Rate: 18 Laboratory Tests 06/11/17 15:04: White Blood Count 9.8 Blood Pressure 128 /86 Mean: 100 Laboratory Tests 06/11/17 15:04: Creatinine 0.92, Platelet Count 310 Results/Orders Lab Results Laboratory Tests Test 06/11/17 15:04 Range/Units White Blood Count 9.8 4.3-11.0 10^3/uL Red Blood Count 4.28 L 4.35-5.85 10^6/uL Hemoglobin 13.2 L 13.3-17.7 G/DL Hematocrit 39 L 40-54 % Mean Corpuscular Volume 92 80-99 FL Mean Corpuscular Hemoglobin 31 25-34 PG Mean Corpuscular Hemoglobin Concent 34 32-36 G/DL Red Cell Distribution Width 14.9 H 10.0-14.5 % Platelet Count 310 130-400 10^3/uL Mean Platelet Volume 9.1 7.4-10.4 FL Neutrophils (%) (Auto) 51 42-75 % Lymphocytes (%) (Auto) 33 12-44 % Monocytes (%) (Auto) 9 0-12 % Eosinophils (%) (Auto) 6 0-10 % Basophils (%) (Auto) 1 0-10 % Neutrophils # (Auto) 5.0 1.8-7.8 X 10^3 Lymphocytes # (Auto) 3.2 1.0-4.0 X 10^3 Monocytes # (Auto) 0.9 0.0-1.0 X 10^3 Eosinophils # (Auto) 0.6 H 0.0-0.3 10^3/uL Basophils # (Auto) 0.1 0.0-0.1 10^3/uL Sodium Level 140 135-145 MMOL/L Potassium Level 3.8 3.6-5.0 MMOL/L Chloride Level 104 98-107 MMOL/L Carbon Dioxide Level 26 21-32 MMOL/L Anion Gap 10 5-14 MMOL/L Blood Urea Nitrogen 11 7-18 MG/DL Creatinine 0.92 0.60-1.30 MG/DL Estimat Glomerular Filtration Rate > 60 BUN/Creatinine Ratio 12 Glucose Level 97 70-105 MG/DL Uric Acid 5.2 2.6-7.2 MG/DL Calcium Level 9.3 8.5-10.1 MG/DL C-Reactive Protein High Sensitivity 0.47 0.00-0.50 MG/DL My Orders Orders - VIGNESH FAITH MD Basic Metabolic Panel (06/11/17 14:44) Cbc With Automated Diff (06/11/17 14:44) Hs C Reactive Protein (06/11/17 14:44) Saline Lock/Iv-Start (06/11/17 14:44) Uric Acid (06/11/17 14:44) Us Venous Lower Ext Lt (06/11/17 15:18) Rivaroxaban Tablet (Xarelto Tablet) (06/11/17 16:45) Vital Signs/I&O Capillary Refill : Less Than 3 Seconds Blood Pressure Mean: 100 Progress Note : Progress Note Workup was pursued with labs. There is no indication of infection. Ultrasound was pursued because of the common on the prior ultrasound about the calf veins not being well visualized. DVT was found on the ultrasound. The first dose of Xarelto was administered in the ER. Diagnostic Imaging Diagonstic Imaging: Ultrasound Plain Films/CT/US/NM/MRI: leg Comments Left lower extremity ultrasound report reviewed. See report below: NAME: [facility] REC#: [id number] PT STATUS: REG ER : 1955 PHYSICIAN: VIGNESH FAITH MD ADMIT DATE: 06/11/17/ER Draft Date of Exam:06/11/17 US VENOUS LOWER EXT LT PROCEDURE: US left lower extremity venous. TECHNIQUE: Multiple real-time grayscale images were obtained over the left lower extremity in various projections. Additional duplex Doppler and color Doppler images were also obtained. INDICATION: Increasing left leg redness. COMPARISON: 06/03/2017. FINDINGS: There has been thrombosis of the greater saphenous vein since previous exam. This does extend from the common femoral vein distally to the calf. Thrombus does extend into the common femoral vein from the greater saphenous vein but does not cause occlusion of the common femoral vein. The superficial femoral vein and popliteal vein and gastroc veins are patent. IMPRESSION: 1. Long segment thrombosis of the greater saphenous vein with portion of the thrombus extending into the common femoral vein. Common femoral vein is not occluded. Dictated on workstation # [id number] Dict: 06/11/17 1623 Trans: 06/11/17 1627 [id number] Interpreted by: ZULEMA SANTACRUZ MD Departure Impression Impression: Primary Impression: Left leg DVT Qualified Codes: I82.412 - Acute embolism and thrombosis of left femoral vein Disposition: HOME, SELF-CARE Condition: Improved Departure-Patient Inst. Decision time for Depature: 16:37 Referrals: RACHEAL IGLESIAS MD (PCP/Family) Primary Care Physician Patient Instructions: Deep Vein Thrombosis (Blood Clots in the Legs) (DC) Add. Discharge Instructions: Restart Xarelto as prescribed. It is very important that you do not miss any doses. Please follow-up with your primary care provider as soon as possible. Return to the emergency room if you have worsening symptoms. All discharge instructions reviewed with patient and/or family. Voiced understanding. Scripts Rivaroxaban (Xarelto Starter Pack) 1 Each Tab.ds.pk 1 EACH PO UD, #51 PKG 15mg by mouth twice daily x 21 days then 20mg by mouth daily Prov: VIGNESH FAITH MD 06/11/17 Copy Copies To 1: RACHEAL IGLESIAS MD, JOSHUA T MD Jun 11, 2017 14:56
[2017-06-11 15:10] LABS: BASOPHILS # (AUTO) 0.1 10^3/uL (0.0-0.1); BASOPHILS % (AUTO) 1 % (0-10); EOSINOPHILS # (AUTO) 0.6 10^3/uL (0.0-0.3); EOSINOPHILS % (AUTO) 6 % (0-10); HEMATOCRIT 39 % (40-54); HEMOGLOBIN 13.2 G/DL (13.3-17.7); LYMPHOCYTES # (AUTO) 3.2 X 10^3 (1.0-4.0); LYMPHOCYTES % (AUTO) 33 % (12-44); MEAN CORPUSCULAR HEMOGLOBIN 31 PG (25-34); MEAN CORPUSCULAR HGB CONC 34 G/DL (32-36); MEAN CORPUSCULAR VOLUME 92 FL (80-99); MEAN PLATELET VOLUME 9.1 FL (7.4-10.4); MONOCYTES # (AUTO) 0.9 X 10^3 (0.0-1.0); MONOCYTES % (AUTO) 9 % (0-12); NEUTROPHILS % (AUTO) 51 % (42-75); PLATELET COUNT 310 10^3/uL (130-400); RED BLOOD COUNT 4.28 10^6/uL (4.35-5.85); RED CELL DISTRIBUTION WIDTH 14.9 % (10.0-14.5); WHITE BLOOD COUNT 9.8 10^3/uL (4.3-11.0)
[2017-06-11 15:30] LABS: BUN/CREATININE RATIO 12; CALCIUM 9.3 MG/DL (8.5-10.1); CARBON DIOXIDE 26 MMOL/L (21-32); CHLORIDE 104 MMOL/L (98-107); CREATININE SERUM 0.92 MG/DL (0.60-1.30); GFR ESTIMATED > 60; GLUCOSE 97 MG/DL (70-105); POTASSIUM 3.8 MMOL/L (3.6-5.0); SODIUM 140 MMOL/L (135-145); URIC ACID 5.2 MG/DL (2.6-7.2)
--- NOTE | 2017-06-11 16:28 | Diagnostic Imaging Report ---
PROCEDURE: US left lower extremity venous. TECHNIQUE: Multiple real-time grayscale images were obtained over the left lower extremity in various projections. Additional duplex Doppler and color Doppler images were also obtained. INDICATION: Increasing left leg redness. COMPARISON: 06/03/2017. FINDINGS: There has been thrombosis of the greater saphenous vein since previous exam. This does extend from the common femoral vein distally to the calf. Thrombus does extend into the common femoral vein from the greater saphenous vein but does not cause occlusion of the common femoral vein. The superficial femoral vein and popliteal vein and gastroc veins are patent. IMPRESSION: 1. Long segment thrombosis of the greater saphenous vein with portion of the thrombus extending into the common femoral vein. Common femoral vein is not occluded. Dictated by: Dictated on workstation # [id number]
[2017-06-11] MEDS ORDERED: RIVA1TAB PO (16:38)
[2017-06-11] MEDS ORDERED: RIVAROXABAN 15 MG TABLET (XARELTO) PO ONE (16:45)
[2017-06-11 16:54] VITALS: BP 128/86
== END 2017-06-11 16:54 | disposition home or self-care (01) ==
LOC: EDUNIT# 14:18 → ER 14:21
DX: I82.412 Acute embolism and thrombosis of left femoral vein (principal); I82.812 Embolism and thrombosis of superficial veins of left lower extremity; F41.9 Anxiety disorder, unspecified; K21.9 Gastro-esophageal reflux disease without esophagitis; G40.909 Epilepsy, unspecified, not intractable, without status epilepticus; G20 Parkinson's disease; J44.9 Chronic obstructive pulmonary disease, unspecified; F17.210 Nicotine dependence, cigarettes, uncomplicated; Z88.0 Allergy status to penicillin; Z88.6 Allergy status to analgesic agent; Z88.8 Allergy status to other drugs, medicaments and biological substances; Z88.1 Allergy status to other antibiotic agents
CPT/HCPCS: 36415; 80048; 84550; 85025; 86141

== ENCOUNTER 2018-04-16 13:18 | Emergency (ER) | payer MEDICAID ==
[~2018-04-16] VITALS: Ht 188 cm; Wt 137.4 kg
[~2018-04-16 13:18] MED LIST changes: +BACL10TA PO; +FURO40TA4; +MORP-33
[2018-04-16 13:20] VITALS: BP 136/86
--- OUTSIDE RECORDS SUMMARY | 2018-04-16 13:22 | XMS REPORT | Clinical Summary ---
Author Author [facility] Organization [facility] Address Unknown Phone Unavailable Care Team Providers Care Production Utility Worker Name Role Phone Dayne Parks MD PCP Source Comments Some departments are not documenting in the electronic medical record. If you do not see the information that you expected, contact Release of Information in the Health Information Management department at [phone] for further assistance in locating additional records.[facility] Allergies Not on File Medications Not on file Active Problems Not on file Social History Date Tobacco Use Types Packs/Day Years Used Never Assessed Sex Assigned at Date Recorded Not on file Industry Job Start Date Occupation Not on file Not on file Not on file Travel End Travel History Travel Start No recent travel history available. Last Filed Vital Signs Not on file Plan of Treatment Health Maintenance Due Date Last Done Comments HEPATITIS C SCREENING 1955 PHYSICAL (COMPREHENSIVE) 1964 EXAM HIV SCREENING 1972 DTAP/TDAP VACCINES (1 - 1975 Tdap) COLORECTAL CANCER 2007 SCREENING SHINGLES RECOMBINANT 2007 VACCINE (1 of 2) INFLUENZA VACCINE 12/09/2017 Results Not on filefrom Last 3 Months
--- OUTSIDE RECORDS SUMMARY | 2018-04-16 13:23 | XMS REPORT | Continuity of Care Document ---
Author Author [facility] Organization [facility] Address Unknown Phone Unavailable Allergies Active Description Code Type Severity Reaction Onset Reported/Identified Relationship to Patient Clinical Status Yes acetaminophen [id number] Drug Allergy Unknown N/A 02/02/2015 Yes clarithromycin [id number] Drug Allergy Unknown NAUSEA 02/02/2015 Yes doxycycline [id number] Drug Allergy Unknown NAUSEA 02/02/2015 Yes hydrocodone [id number] Drug Allergy Unknown N/A 02/02/2015 Yes naproxen [id number] Drug Allergy Unknown N/A 02/02/2015 Yes Penicillins [id number] Drug Allergy Unknown N/A 02/02/2015 Yes clarithromycin [id number] Drug Allergy Mild NAUSEA 02/07/2015 Yes doxycycline [id number] Drug Allergy Mild NAUSEA 02/07/2015 Medications There is no data. Problems Date Dx Coded Attending Type Code Diagnosis Diagnosed By 07/16/2010 Ot 729.5 11/19/2010 Ot 491.21 11/19/2010 Ot 786.05 01/14/2015 MARS ELIZONDO MD Ot 593.9 RENAL URETERAL DIS NOS 01/14/2015 [...] AND THOMBOS UNSP DEEP VEINS OF 02/17/2016 RACHELLE, MERCY EUCEDAP Ot F17.210 NICOTINE DEPENDENCE, CIGARETTES, UNCOMPL 02/17/2016 RACHELLE, MERCY KNOT PICKER CLOTH Ot G89.29 OTHER CHRONIC PAIN 02/17/2016 RACHELLE, MERCY [employer] Ot J44.9 CHRONIC OBSTRUCTIVE PULMONARY DISEASE, U 02/17/2016 RACHELLE, MERCY K[employer]OTH Ot M54.2 CERVICALGIA 02/17/2016 RACHELLE, MERCY K[employer]OTH Ot R51 HEADACHE 02/17/2016 RACHELLE, MERCY K[employer] PICK[employer]OTH Ot Z79.899 OTHER BRUSHER (CURRENT) DRUG THERAPY 02/23/2016 RACHELLE, MERCY K[employer] PICK[employer]OTH Ot F17.210 NICOTINE DEPENDENCE, CIGARETTES, UNCOMPL 02/23/2016 RACHELLE, MERCY K[employer] PICK[employer] CLOTH Ot G89.29 OTHER CHRONIC PAIN 02/23/2016 RACHELLE, MERCY K[employer] PICK[employer]OTH Ot J44.9 CHRONIC OBSTRUCTIVE PULMONARY DISEASE, U 02/23/2016 RACHELLE, MERCY K[employer]OTH Ot M54.2 CERVICALGIA 02/23/2016 RACHELLE, MERCY K[employer] PICK[employer]OTH Ot R51 HEADACHE 02/23/2016 RACHELLE, MERCY K[employer] PICK[employer]OTH Ot Z79.899 OTHER BRUSHER (CURRENT) DRUG THERAPY 06/03/2017 MARS ELIZONDO MD Ot F17.210 NICOTINE DEPENDENCE, CIGARETTES, UNCOMPL 06/03/2017 MARS ELIZONDO MD Ot F41.9 ANXIETY DISORDER, UNSPECIFIED 06/03/2017 MARS ELIZONDO MD Ot G20 PARKINSON'S DISEASE 06/03/2017 MARS ELIZONDO MD Ot G40.909 EPILEPSY, UNSP, NOT INTRACTABLE, WITHOUT 06/03/2017 MARS ELIZONDO MD Ot J44.9 CHRONIC OBSTRUCTIVE PULMONARY DISEASE, U 06/03/2017 MARS ELIZONDO MD Ot K21.9 GASTRO-ESOPHAGEAL REFLUX DISEASE WITHOUT 06/03/2017 MARS ELIZONDO MD Ot L03.116 CELLULITIS OF LEFT LOWER LIMB 06/03/2017 MARS ELIZONDO MD Ot M25.462 EFFUSION, LEFT KNEE 06/03/2017 MARS ELIZONDO MD Ot Z87.19 PERSONAL HISTORY OF OTHER DISEASES OF 06/03/2017 MARS ELIZONDO MD, Ot Z87.442 PERSONAL HISTORY OF URINARY CALCULI 06/03/2017 ROB MUHAMMAD MD Ot 717.3 DERANG MED MENISCUS NEC 06/03/2017 ROB MUHAMMAD MD Ot V72.83 EXAM PRE-OPERATIVE NEC 06/03/2017 ROB MUHAMMAD MD Ot V74.8 SCREEN-BACTERIAL DIS NEC 06/08/2017 MARS ELIZONDO MD, Ot F17.210 NICOTINE DEPENDENCE, CIGARETTES, UNCOMPL 06/08/2017 MARS ELIZONDO MD, Ot F41.9 ANXIETY DISORDER, UNSPECIFIED 06/08/2017 MARS ELIZONDO MD, Ot G20 PARKINSON'S DISEASE 06/08/2017 MARS ELIZONDO MD, Ot G40.909 EPILEPSY, UNSP, NOT INTRACTABLE, WITHOUT 06/08/2017 MARS ELIZONDO MD, Ot J44.9 CHRONIC OBSTRUCTIVE PULMONARY DISEASE, U 06/08/2017 MARS ELIZONDO MD, Ot K21.9 GASTRO-ESOPHAGEAL REFLUX DISEASE WITHOUT 06/08/2017 MARS ELIZONDO MD Ot L03.116 CELLULITIS OF LEFT LOWER LIMB 06/08/2017 MARS ELIZONDO MD, Ot M25.462 EFFUSION, LEFT KNEE 06/08/2017 MARS ELIZONDO MD, Ot Z87.19 PERSONAL HISTORY OF OTHER DISEASES OF 06/08/2017 MARS ELIZONDO MD, Ot Z87.442 PERSONAL HISTORY OF URINARY CALCULI 06/11/2017 VIGNESH FAITH MD Ot F17.210 NICOTINE DEPENDENCE, CIGARETTES, UNCOMPL 06/11/2017 VIGNESH FAITH MD Ot F41.9 ANXIETY DISORDER, UNSPECIFIED 06/11/2017 VIGNESH FAITH MD Ot G20 PARKINSON'S DISEASE 06/11/2017 VIGNESH FAITH MD Ot G40.909 EPILEPSY, UNSP, NOT INTRACTABLE, WITHOUT 06/11/2017 VIGNESH FAITH MD Ot I82.412 ACUTE EMBOLISM AND THROMBOSIS OF LEFT FE 06/11/2017 VIGNESH FAITH MD Ot I82.812 EMBOLISM AND THROMBOSIS OF SUPERFICIAL V 06/11/2017 VIGNESH FAITH MD, Ot J44.9 CHRONIC OBSTRUCTIVE PULMONARY DISEASE, U 06/11/2017 VIGNESH FAITH MD, Ot K21.9 GASTRO-ESOPHAGEAL REFLUX DISEASE WITHOUT 06/11/2017 VIGNESH FAITH MD, Ot M79.652 PAIN IN LEFT THIGH 06/11/2017 VIGNESH FAITH MD, Ot Z88.0 ALLERGY STATUS TO PENICILLIN 06/11/2017 VIGNESH FAITH MD, Ot Z88.1 ALLERGY STATUS TO OTHER ANTIBIOTIC AGENT 06/11/2017 VIGNESH FAITH MD, Ot Z88.6 ALLERGY STATUS TO ANALGESIC AGENT STATUS 06/11/2017 VIGNESH FAITH MD, Ot Z88.8 ALLERGY STATUS TO OTH DRUG/MEDS/BIOL SUB 06/11/2017 ROB MUHAMMAD MD Ot 717.3 DERANG MED MENISCUS NEC 06/11/2017 ROB MUHAMMAD MD Ot V72.83 EXAM PRE-OPERATIVE NEC 06/11/2017 ROB MUHAMMAD MD, Ot V74.8 SCREEN-BACTERIAL DIS NEC 06/15/2017 VIGNESH FAITH MD, Ot F17.210 NICOTINE DEPENDENCE, CIGARETTES, UNCOMPL 06/15/2017 VIGNESH FAITH MD, Ot F41.9 ANXIETY DISORDER, UNSPECIFIED 06/15/2017 VIGNESH FAITH MD, Ot G20 PARKINSON'S DISEASE 06/15/2017 VIGNESH FAITH MD, Ot G40.909 EPILEPSY, UNSP, NOT INTRACTABLE, WITHOUT 06/15/2017 VIGNESH FAITH MD, Ot I82.412 ACUTE EMBOLISM AND THROMBOSIS OF LEFT FE 06/15/2017 VIGNESH FAITH MD, Ot I82.812 EMBOLISM AND THROMBOSIS OF SUPERFICIAL V 06/15/2017 VIGNESH FAITH MD, Ot J44.9 CHRONIC OBSTRUCTIVE PULMONARY DISEASE, U 06/15/2017 VIGNESH FAITH MD, Ot K21.9 GASTRO-ESOPHAGEAL REFLUX DISEASE WITHOUT 06/15/2017 VIGNESH FAITH MD, Ot M79.652 PAIN IN LEFT THIGH 06/15/2017 VIGNESH FAITH MD, Ot Z88.0 ALLERGY STATUS TO PENICILLIN 06/15/2017 VIGNESH FAITH MD, Ot Z88.1 ALLERGY STATUS TO OTHER ANTIBIOTIC AGENT 06/15/2017 VIGNESH FAITH MD, Ot Z88.6 ALLERGY STATUS TO ANALGESIC AGENT STATUS 06/15/2017 VIGNESH FAITH MD, Ot Z88.8 ALLERGY STATUS TO OTH DRUG/MEDS/BIOL SUB Procedures There is no data. Results Test [...] plasma albumin measurement (mass/volume) 4.3 g/dL 3.2-4.5 CBC With Differential/Platelet - 05/15/16 15:24 WBC 9.0 x10E3/uL 3.4-10.8 RBC 3.99 x10E6/uL 4.14-5.80 Hemoglobin 12.1 g/dL 12.6-17.7 Hematocrit 36.8 % 37.5-51.0 MCV 92 fL 79-97 MCH 30.3 pg 26.6-33.0 MCHC 32.9 g/dL 31.5-35.7 RDW 14.2 % 12.3-15.4 Platelets 296 x10E3/uL 150-379 Neutrophils 44 % Lymphs 44 % Monocytes 8 % Eos 3 % Basos 1 % Neutrophils (Absolute) 3.9 x10E3/uL 1.4-7.0 Lymphs (Absolute) 4.0 x10E3/uL 0.7-3.1 Monocytes(Absolute) 0.7 x10E3/uL 0.1-0.9 Eos (Absolute) 0.3 x10E3/uL 0.0-0.4 Baso (Absolute) 0.1 x10E3/uL 0.0-0.2 Immature Granulocytes 0 % Immature Grans (Abs) 0.0 x10E3/uL 0.0-0.1 Comp. Metabolic Panel (14) - 05/15/16 15:24 Glucose, Serum 92 mg/dL 65-99 BUN 14 mg/dL 6-24 Creatinine, Serum 0.76 mg/dL 0.76-1.27 eGFR If NonAfricn Am 101 mL/min/1.73 >59 eGFR If Africn Am 116 mL/min/1.73 >59 BUN/Creatinine Ratio 18 9-20 Sodium, Serum 142 mmol/L 134-144 Potassium, Serum 4.1 mmol/L 3.5-5.2 Chloride, Serum 104 mmol/L 96-106 Carbon Dioxide, Total 23 mmol/L 18-29 Calcium, Serum 8.9 mg/dL 8.7-10.2 Protein, Total, Serum 6.2 g/dL 6.0-8.5 Albumin, Serum 4.0 g/dL 3.5-5.5 Globulin, Total 2.2 g/dL 1.5-4.5 A/G Ratio 1.8 1.1-2.5 Bilirubin, Total 0.2 mg/dL 0.0-1.2 Alkaline Phosphatase, S 103 IU/L 39-117 AST (SGOT) 19 IU/L 0-40 ALT (SGPT) 22 IU/L 0-44 TSH - 05/15/16 15:24 TSH 2.020 uIU/mL 0.450-4.500 Complete blood count (CBC) with automated white [...] platelet poor plasma (mass/volume) 2.03 ug/mL 0.00-0.49 Complete blood count (CBC) with automated white blood cell (WBC) differential - 06/11/17 15:04 Blood leukocytes automated count (number/volume) 9.8 10*3/uL 4.3-11.0 Blood erythrocytes automated count (number/volume) 4.28 10*6/uL 4.35-5.85 Venous blood hemoglobin measurement (mass/volume) 13.2 g/dL 13.3-17.7 Blood hematocrit (volume fraction) 39 % 40-54 Automated erythrocyte mean corpuscular volume 92 [foz_us] 80-99 Automated erythrocyte mean corpuscular hemoglobin (mass per erythrocyte) 31 pg 25-34 Automated erythrocyte mean corpuscular hemoglobin concentration measurement ( mass/volume) 34 g/dL 32-36 Automated erythrocyte distribution width ratio 14.9 % 10.0-14.5 Automated blood platelet count (count/volume) 310 10*3/uL 130-400 Automated blood platelet mean volume measurement 9.1 [foz_us] 7.4-10.4 Automated blood neutrophils/100 leukocytes 51 % 42-75 Automated blood lymphocytes/100 leukocytes 33 % 12-44 Blood monocytes/100 leukocytes 9 % 0-12 Automated blood eosinophils/100 leukocytes 6 % 0-10 Automated blood basophils/100 leukocytes 1 % 0-10 Blood neutrophils automated count (number/volume) 5.0 10*3 1.8-7.8 Blood lymphocytes automated count (number/volume) 3.2 10*3 1.0-4.0 Blood monocytes automated count (number/volume) 0.9 10*3 0.0-1.0 Automated eosinophil count 0.6 10*3/uL 0.0-0.3 Automated blood basophil count (count/volume) 0.1 10*3/uL 0.0-0.1 Whole blood basic metabolic panel - 06/11/17 15:04 Serum or plasma sodium measurement (moles/volume) 140 mmol/L 135-145 Serum or plasma potassium measurement (moles/volume) 3.8 mmol/L 3.6-5.0 Serum or plasma chloride measurement (moles/volume) 104 mmol/L 98-107 Carbon dioxide 26 mmol/L 21-32 Serum or plasma anion gap determination (moles/volume) 10 mmol/L 5-14 Serum or plasma urea nitrogen measurement (mass/volume) 11 mg/dL 7-18 Serum or plasma creatinine measurement (mass/volume) 0.92 mg/dL 0.60-1.30 Serum or plasma urea nitrogen/creatinine mass ratio 12 NRG Serum or plasma creatinine measurement with calculation of estimated glomerular filtration rate > NRG Serum or plasma glucose measurement (mass/volume) 97 mg/dL 70-105 Serum or plasma calcium measurement (mass/volume) 9.3 mg/dL 8.5-10.1 Serum or plasma uric acid measurement (mass/volume) - 06/11/17 15:04 Serum or plasma uric acid measurement (mass/volume) 5.2 mg/dL 2.6-7.2 Serum or plasma C reactive protein measurement (mass/volume) - 06/11/17 15:04 Serum or plasma C reactive protein measurement (mass/volume) 0.47 mg /dL 0.00-0.50 Encounters ACCT No. Visit Date/Time Discharge Status Pt. Type Provider Facility Loc./Unit Complaint [id number] 06/11/2017 14:21:00 06/11/2017 16:54:00 DIS Emergency VIGNESH FAITH MD [facility] ER LEFT THIGH PAIN/ SWELLING [id number] 06/03/2017 17:00:00 06/03/2017 19:22:00 DIS Emergency MARS ELIZONDO MD [facility] ER KNEE SWOLLEN,POSS BLOOD CLOT [id number] 02/17/2016 18:54:00 02/17/2016 23:15:00 DIS Emergency MERCY BUSH [facility] ER HEADACHE, HOT FLASHES, NECK SWELLING/PAIN [id number] 05/19/2015 21:03:00 05/20/2015 00:22:00 DIS Emergency MARICEL LOCKWOOD DO [facility] ER KNEE PAIN/SWELLING [id number] 02/07/2015 07:42:00 02/07/2015 11:45:00 DIS Outpatient ROB MUHAMMAD MD [facility] SDC LEFT KNEE TORN MENISCUS [id number] 02/02/2015 09:03:00 02/02/2015 23:59:59 CLS Outpatient ROB MUHAMMAD MD [facility] PREOP LEFT KNEE TORN MENISCUS [id number] 01/14/2015 21:14:00 01/14/2015 23:43:00 DIS Emergency MARS ELIZONDO MD [facility] ER LEFT KNEE PAIN [id number] 01/14/2015 21:14:00 Document Registration [id number] 11/19/2010 18:41:00 Document Registration [id number] 02/07/2015 07:50:51 ACT Document Registration [id number] 05/16/2016 07:05:00 Document Registration
--- NOTE | 2018-04-16 14:03 | ED Lower Extremity ---
General Chief Complaint: Lower Extremity Stated Complaint: PAIN IN L LEG, POSS BLOOD CLOT Nursing Triage Note: ARRIVED VIA WC TO ROOM 06. STATES HE THINKS HE HAS A BLOOD CLOT IN LEFT LEG. SAME SX BEFORE. PAIN AND SWELLING STARTED X2 DAYS AGO. Nursing Sepsis Screen: No Definite Risk Source: patient Exam Limitations: no limitations History of Present Illness Date Seen by Provider: Apr 16, 2018 Time Seen by Provider: 13:30 Initial Comments Patient is a 62-year-old male who presents to the emergency room with complaints of left leg pain and swelling that started 2 days ago. He complains of pain to the left upper calf and pain behind the knee. He does have history of blood clots and rubs the same similar pain is in the past. He is on Eliquis. He has mild swelling to the left calf. Normal distal pulses. Onset: other (2 days ago. ) Pain/Injury Location: left leg Method of Injury: unknown Allergies and Home Medications Allergies Coded Allergies: Penicillins (Unverified Allergy, Unknown, 02/02/15) acetaminophen (Unverified Allergy, Unknown, 02/02/15) hydrocodone (Unverified Allergy, Unknown, 02/02/15) naproxen (Unverified Allergy, Unknown, 02/02/15) clarithromycin (Verified Adverse Reaction, Mild, NAUSEA, 02/07/15) doxycycline (Verified Adverse Reaction, Mild, NAUSEA, 02/07/15) Home Medications Oxycodone HCl/Acetaminophen 1 Each Tablet, 1-2 EACH PO Q4H PRN for PAIN Prescribed by: CHARIS BALDWIN on 02/07/15 1053 Rivaroxaban 1 Each Tab.ds.pk, 1 EACH PO UD 15mg by mouth twice daily x 21 days then 20mg by mouth daily Prescribed by: VIGNESH PADILLA on 06/11/17 1638 Patient Home Medication List Home Medication List Reviewed: Yes Review of Systems Constitutional: no symptoms reported, see HPI Musculoskeletal: see HPI, other (left leg pain) All Other Systems Reviewed Negative Unless Noted: Yes Past Zcsomlt-Tezlgj-Qykvuh Hx Past Med/Social Hx: Reviewed Nursing Past Med/Soc Hx Patient Social History Type Used: Cigarettes Recent Foreign Travel: No Contact w/Someone Who Travel: No Recent Infectious Disease Expo: No Recent Hopitalizations: No Immunizations Up To Date Date of Pneumonia Vaccine: Feb 07, 2011 Seasonal Allergies Seasonal Allergies: No Past Medical History Surgeries: Yes (LEFT KNEE SCOPE X 5, CYST REMOVED FROM RIGHT BREAST, BILAT CATARACTS) Eye Surgery, Orthopedic Respiratory: Yes Asthma, Chronic Bronchitis, COPD Cardiac: Yes Deep Vein Thrombosis Neurological: Yes (PT STATES "I CAN CONTROL THEM MYSELF") Parkinson's Disease, Seizure Disorder Genitourinary: Yes Kidney Stones Gastrointestinal: Yes Gastroesophageal Reflux, Hiatal Hernia, Ulcer Musculoskeletal: Yes (CHRONIC L KNEE &LEG PAIN/SWELLING; ) Arthritis, Chronic Back Pain Endocrine: No HEENT: Yes Cataract Cancer: No Psychosocial: Yes Anxiety Integumentary: Yes (SKIN ULCERS-LEGS) Blood Disorders: No Adverse Reaction/Blood Tranf: No Family Medical History Reviewed Nursing Family Hx No Pertinent Family Hx Physical Exam Vital Signs Capillary Refill : Less Than 3 Seconds Height, Weight, BMI Height: 6'2.00" Weight: 303lbs. oz. 137.751597hc; BMI Method:Stated General Appearance: WD/WN, no apparent distress Neck: non-tender, full range of motion, supple, normal inspection Cardiovascular: normal peripheral pulses, regular rate, rhythm, no edema, no gallop, no JVD, no murmur Respiratory: chest non-tender, lungs clear, normal breath sounds, no respiratory distress, no accessory muscle use Legs: right leg non-tender, right leg normal inspection, right leg normal range of motion, right leg no evidence of injury; left leg pain, left leg soft tissue tenderness, left leg swelling (calf swelling ) Neurologic/Psychiatric: alert, normal mood/affect, oriented x 3 Skin: normal color, warm/dry Progress/Results/Core Measures Results/Orders Lab Results Laboratory Tests Test 04/16/18 14:27 Range/Units White Blood Count 9.5 4.3-11.0 10^3/uL Red Blood Count 4.36 4.35-5.85 10^6/uL Hemoglobin 13.4 13.3-17.7 G/DL Hematocrit 41 40-54 % Mean Corpuscular Volume 94 80-99 FL Mean Corpuscular Hemoglobin 31 25-34 PG Mean Corpuscular Hemoglobin Concent 33 32-36 G/DL Red Cell Distribution Width 14.8 H 10.0-14.5 % Platelet Count 315 130-400 10^3/uL Mean Platelet Volume 9.6 7.4-10.4 FL Prothrombin Time 13.2 12.2-14.7 SEC INR Comment 1.0 0.8-1.4 Activated Partial Thromboplast Time 34 24-35 SEC D-Dimer 0.62 H 0.00-0.49 UG/ML Sodium Level 140 135-145 MMOL/L Potassium Level 3.8 3.6-5.0 MMOL/L Chloride Level 107 98-107 MMOL/L Carbon Dioxide Level 22 21-32 MMOL/L Anion Gap 11 5-14 MMOL/L Blood Urea Nitrogen 13 7-18 MG/DL Creatinine 0.88 0.60-1.30 MG/DL Estimat Glomerular Filtration Rate > 60 BUN/Creatinine Ratio 15 Glucose Level 93 70-105 MG/DL Calcium Level 10.0 8.5-10.1 MG/DL Corrected Calcium 8.5-10.1 MG/DL Total Bilirubin 0.4 0.1-1.0 MG/DL Aspartate Amino Transf (AST/SGOT) 17 5-34 U/L Alanine Aminotransferase (ALT/SGPT) 18 0-55 U/L Alkaline Phosphatase 112 40-136 U/L Total Protein 8.0 6.4-8.2 GM/DL Albumin 4.6 H 3.2-4.5 GM/DL My Orders Orders - FEDE BARAJAS Comprehensive Metabolic Panel (04/16/18 13:35) Cbc No Diff (04/16/18 13:35) Protime With Inr (04/16/18 13:35) Partial Thromboplastin Time (04/16/18 13:35) Fibrin Degradation Products (04/16/18 13:35) Us Venous Lower Ext Lt (04/16/18 13:35) Saline Lock/Iv-Start (04/16/18 13:35) Monitor-Rhythm Ecg Trace Only (04/16/18 13:35) Vital Signs/I&O Blood Pressure Mean: 103 Progress Progress Note : Time: 15:19 Progress Note Nursing staff informed me that the patient reported that he had a family emergency and had to leave the ER before results of US were back. Reports that he signed AMA papers and nursing staff informed him of risk of leaving and benefits of staying. Diagnostic Imaging Diagonstic Imaging: Ultrasound Plain Films/CT/US/NM/MRI: leg Comments NAME: [facility] REC#: [id number] PT STATUS: DEP ER : 1955 PHYSICIAN: FEDE BARAJAS ADMIT DATE: 04/16/18/ER Signed Date of Exam: 04/16/18 US VENOUS LOWER EXT LT PROCEDURE: US left lower extremity venous. TECHNIQUE: Multiple real-time grayscale images were obtained over the left lower extremity in various projections. Additional duplex Doppler and color Doppler images were also obtained. INDICATION: Leg pain and swelling. FINDINGS: The previous left lower extremity venous Doppler exam performed on 06/11/2017 noted a long segment thrombosis of the greater saphenous vein where the portion of the thrombus was extending into the common femoral vein. On this study, the greater saphenous vein is not well visualized. There is generally good blood flow and compressibility throughout the deep venous system, however. There is no sign of a deep venous thrombosis. IMPRESSION: There is no evidence for a deep venous thrombosis of the left lower extremity. Dictated by: Dictated on workstation # [id number] Dict: 04/16/18 1611 Trans: 04/16/182131 Interpreted by: PRANAY WYATT MD Electronically signed by: PRANAY WYATT MD 04/16/182131 Reviewed: Reviewed by Me Departure Impression Primary Impression: Lower extremity pain, left Additional Impressions: Swelling of left lower extremity Left against medical advice Disposition: AGAINST MEDICAL ADVICE Condition: Against Medical Advice Departure-Patient Inst. Referrals: RACHEAL IGLESIAS MD (PCP/Family) Primary Care Physician FEDE BARAJAS Apr 16, 2018 14:03
[2018-04-16 14:35] LABS: HEMOGLOBIN 13.4 G/DL (13.3-17.7); MEAN PLATELET VOLUME 9.6 FL (7.4-10.4); RED BLOOD COUNT 4.36 10^6/uL (4.35-5.85); RED CELL DISTRIBUTION WIDTH 14.8 % (10.0-14.5); WHITE BLOOD COUNT 9.5 10^3/uL (4.3-11.0)
[2018-04-16 14:53] LABS: FIBRIN DEGRADATION PRODUCTS 0.62 UG/ML (0.00-0.49); PROTHROMBIN TIME PATIENT 13.2 SEC (12.2-14.7)
[2018-04-16 14:58] LABS: ALANINE AMINOTRANSFERASE 18 U/L (0-55); ALBUMIN 4.6 GM/DL (3.2-4.5); ALKALINE PHOSPHATASE 112 U/L (40-136); BILIRUBIN,TOTAL 0.4 MG/DL (0.1-1.0); BUN/CREATININE RATIO 15; CARBON DIOXIDE 22 MMOL/L (21-32); CHLORIDE 107 MMOL/L (98-107); CREATININE SERUM 0.88 MG/DL (0.60-1.30); GFR ESTIMATED > 60; GLUCOSE 93 MG/DL (70-105); POTASSIUM 3.8 MMOL/L (3.6-5.0); SODIUM 140 MMOL/L (135-145)
--- NOTE | 2018-04-16 16:20 | Diagnostic Imaging Report ---
PROCEDURE: US left lower extremity venous. TECHNIQUE: Multiple real-time grayscale images were obtained over the left lower extremity in various projections. Additional duplex Doppler and color Doppler images were also obtained. INDICATION: Leg pain and swelling. FINDINGS: The previous left lower extremity venous Doppler exam performed on 06/11/2017 noted a long segment thrombosis of the greater saphenous vein where the portion of the thrombus was extending into the common femoral vein. On this study, the greater saphenous vein is not well visualized. There is generally good blood flow and compressibility throughout the deep venous system, however. There is no sign of a deep venous thrombosis. IMPRESSION: There is no evidence for a deep venous thrombosis of the left lower extremity. Dictated by: Dictated on workstation # [id number]
== END 2018-04-16 15:19 | disposition left against medical advice (07) ==
LOC: EDUNIT# 13:18 → ER 13:19
DX: M79.605 Pain in left leg (principal); M79.89 Other specified soft tissue disorders; J44.9 Chronic obstructive pulmonary disease, unspecified; G20 Parkinson's disease; G40.909 Epilepsy, unspecified, not intractable, without status epilepticus; K21.9 Gastro-esophageal reflux disease without esophagitis; F41.9 Anxiety disorder, unspecified; Z87.19 Personal history of other diseases of the digestive system; Z87.442 Personal history of urinary calculi; Z86.718 Personal history of other venous thrombosis and embolism; Z88.0 Allergy status to penicillin; Z88.5 Allergy status to narcotic agent; Z88.8 Allergy status to other drugs, medicaments and biological substances; Z88.1 Allergy status to other antibiotic agents; Z79.51 Long term (current) use of inhaled steroids; Z98.890 Other specified postprocedural states
CPT/HCPCS: 36415; 80053; 85027; 85379; 85610; 85730; 93041

== ENCOUNTER → 2018-08-26 | Outpatient (CLI) | payer MEDICAID ==
--- NOTE | 2018-08-26 10:40 | Diagnostic Imaging Report ---
INDICATION: Left wrist pain 3 views of the left wrist show no fracture, dislocation or other acute abnormalities. IMPRESSION: Negative left wrist Dictated by: Dictated on workstation # [id number]
== END ==
LOC: RAD FS 10:15
PROVIDERS: ATTEND Family Medicine
DX: M25.232 Flail joint, left wrist (principal); M79.642 Pain in left hand
CPT/HCPCS: 73110

== ENCOUNTER → 2020-07-19 | Outpatient (CLI) | payer MEDICAID ==
[~2020-07-19] MED LIST changes: -MORP-33; +MORP-68; -OXYC-471 PO; +OXYC1TAB11 PO; +TRH2T PO; -TRIH2TAB2 PO
--- NOTE | 2020-07-19 16:37 | Diagnostic Imaging Report ---
INDICATION: Osteoarthritis, pain COMPARISON: 05/19/2015 TECHNIQUE: 3 radiographs of the left knee dated 07/19/2020. FINDINGS: No acute fracture or dislocation. No destructive osseous process. Joint spaces are well-maintained. Minimal osteophytosis within the medial compartment. No joint effusion. No suspicious radiopaque foreign body. IMPRESSION: No acute osseous abnormality with very minimal degenerative changes for age. Dictated by: Dictated on workstation # [id number]
== END ==
LOC: RAD FS 10:32
PROVIDERS: ATTEND Nurse Practitioner
DX: M17.12 Unilateral primary osteoarthritis, left knee (principal)
CPT/HCPCS: 73562